=== PATIENT | male | born 1970 | race Caucasian/White ===

== ENCOUNTER 2018-11-24 15:44 | Emergency (ER) | payer SELFPAY ==
--- NOTE | 2018-11-24 16:01 | ER Document Report ---
ED Medical Screen (RME) - General Chief Complaint: Cold Symptoms Stated Complaint: CHEST/HEAD CONGESTION Time Seen by Provider: 11/24/18 16:00 - HPI Notes: 11/24/18 16:00 Patient is a 48-year-old male with no significant past medical history presents complaining nasal congestion/discharge, chills, body ache, dry cough that began yesterday. Patient states that other coworkers around him have been sick with a similar illness. No fever. I have treated and performed a rapid initial assessment of this patient. A comprehensive ED assessment and evaluation of the patient, analysis of test results and completion of medical decision making process will be conducted by additional ED providers. PHYSICAL EXAMINATION: GENERAL: Well-appearing, well-nourished and in no acute distress. A&Ox4. Answers questions appropriately. Lungs: CTAB - Related Data Allergies/Adverse Reactions: No Known Allergies Allergy (Verified 11/24/18 15:57) Physical Exam - Vital signs Vitals: Temp Pulse Resp BP Pulse Ox 98.2 F 96 18 141/77 H 99 11/24/18 15:48 11/24/18 15:48 11/24/18 15:48 11/24/18 15:48 11/24/18 15:48 Course - Vital Signs Vital signs: Temp Pulse Resp BP Pulse Ox 98.2 F 96 18 141/77 H 99 11/24/18 15:48 11/24/18 15:48 11/24/18 15:48 11/24/18 15:48 11/24/18 15:48
[2018-11-24] MEDS ORDERED: KETOROLAC TROMETHAMINE 60 MG/2 ML SDV IM ONE (16:17)
[2018-11-24] MEDS ORDERED: DEXAMETHASONE CONC 1 MG/ML SOLN PO ONE (16:17)
--- NOTE | 2018-11-24 17:08 | RADIOLOGY REPORT (SQ) ---
EXAM DESCRIPTION: CHEST 2 VIEWS COMPLETED DATE/TIME: 11/24/2018 5:00 pm REASON FOR STUDY: cough COMPARISON: None. EXAM PARAMETERS: NUMBER OF VIEWS: two views TECHNIQUE: Digital Frontal and Lateral radiographic views of the chest acquired. RADIATION DOSE: NA LIMITATIONS: none FINDINGS: LUNGS AND PLEURA: No opacities, masses or pneumothorax. No pleural effusion. MEDIASTINUM AND HILAR STRUCTURES: No masses or contour abnormalities. HEART AND VASCULAR STRUCTURES: Heart normal size. No evidence for failure. BONES: No acute findings. HARDWARE: None in the chest. OTHER: No other significant finding. IMPRESSION: NO ACUTE RADIOGRAPHIC FINDING IN THE CHEST. TECHNICAL DOCUMENTATION: JOB ID: [id number] [employer]- All Rights Reserved Reading location - IP/workstation name: [email or web address]
--- NOTE | 2018-11-24 17:25 | ER Document Report ---
ED Respiratory Problem - General Chief Complaint: Cold Symptoms Stated Complaint: CHEST/HEAD CONGESTION Time Seen by Provider: 11/24/18 16:00 - HPI Notes: 48-year-old male to the emergency department with complaints of cough, body aches, nasal congestion, sore throat that began yesterday. He states that he thinks he is been having a fever at night. He also states that when he lays down at night he feels like he has chest pain. He states that the cough is productive of a clearish yellow sputum. He states that several people at work have been sick as well. He has not had a flu shot this season. - Related Data Allergies/Adverse Reactions: No Known Allergies Allergy (Verified 11/24/18 15:57) Past Medical History - General Information source: Patient - Social History Smoking Status: Current Every Day Smoker - Decreased in use since starting new job Frequency of alcohol use: None Drug Abuse: None Family History: Reviewed & Not Pertinent Patient has suicidal ideation: No Patient has homicidal ideation: No Review of Systems - Review of Systems Constitutional: Chills, Fever, Malaise EENT: Nose congestion, Sinus pressure, Throat pain. denies: Ear pain Cardiovascular: Chest pain - Chest pain when laying down with congestion. denies: Palpitations, Heart racing Respiratory: See HPI, Cough, Sputum. denies: Short of breath, Wheezing Gastrointestinal: denies: Abdominal pain, Diarrhea, Nausea, Vomiting Genitourinary: No symptoms reported Musculoskeletal: Muscle pain - Body aches Skin: No symptoms reported Hematologic/Lymphatic: No symptoms reported Neurological/Psychological: No symptoms reported -: Yes All other systems reviewed and negative Physical Exam - Vital signs Vitals: Temp Pulse Resp BP Pulse Ox 98.2 F 96 18 141/77 H 99 11/24/18 15:48 11/24/18 15:48 11/24/18 15:48 11/24/18 15:48 11/24/18 15:48 Interpretation: Normal - General General appearance: Appears well, Alert - HEENT Head: Normocephalic, Atraumatic Eyes: Normal Pupils: PERRL Ears: Normal External canal: Normal Tympanic membrane: Normal Sinus: Normal. No: Swelling, Tenderness Nasal: Clear rhinorrhea Mouth/Lips: Normal. No: Angioedema Mucous membranes: Normal Pharynx: Erythema. No: Exudate, Peritonsillar abscess, Post nasal drainage, Retropharyngeal abscess, Tonsillar hypertrophy, Uvular edema, Potential airway comprom. Neck: Normal, Subcutaneous emphysema. No: Lymphadenopathy, Meningismus - Respiratory Respiratory status: No respiratory distress Chest status: Nontender. No: No pleuritic chest pain, Pain on movement, Pain with cough, Pain with deep breathing Breath sounds: Productive cough. No: Decreased air movement, Rales, Rhonchi, Stridor, Wheezing Chest palpation: Normal - Cardiovascular Rhythm: Regular Heart sounds: Normal auscultation Murmur: No - Abdominal Inspection: Normal Distension: No distension Bowel sounds: Normal Tenderness: Nontender Organomegaly: No organomegaly - Back Back: Normal, Nontender - Neurological Neuro grossly intact: Yes Cognition: Normal Orientation: AAOx4 [place] Coma Scale Eye Opening: Spontaneous Ramon Coma Scale Verbal: Oriented Ramon Coma Scale Motor: Obeys Commands Ramon Coma Scale Total: 15 Speech: Normal Motor strength normal: LUE, RUE, LLE, RLE Sensory: Normal - Psychological Associated symptoms: Normal affect, Normal mood - Skin Skin Temperature: Warm Skin Moisture: Dry Skin Color: Normal Course - Re-evaluation Re-evalutation: 11/24/18 17:25 Chest X-Ray 11/24/18 16:00 IMPRESSION: NO ACUTE RADIOGRAPHIC FINDING IN THE CHEST. Laboratory 11/24/18 17:19 Influenza A (Rapid) NEGATIVE Influenza B (Rapid) NEGATIVE - Vital Signs Vital signs: Temp Pulse Resp BP Pulse Ox 98.2 F 96 18 141/77 H 99 11/24/18 15:48 11/24/18 15:48 11/24/18 15:48 11/24/18 15:48 11/24/18 15:48 - Diagnostic Test Radiology reviewed: Image reviewed, Reports reviewed Discharge - Discharge Clinical Impression: Sore throat, Cough, Body aches, Flu-like symptoms URI (upper respiratory infection) Qualifiers: URI type: unspecified viral URI Qualified Code(s): J06.9 - Acute upper respiratory infection, unspecified Condition: Stable Disposition: HOME, SELF-CARE Instructions: Upper Respiratory Illness ([facility]) Additional Instructions: PUSH FLUIDS AND REST. RETURN IF WORSENING SYMPTOMS. FOLLOW UP WITH PRIMARY CARE. Prescriptions: Benzonatate [Tessalon Perle 100 mg Capsule] 100 mg PO Q8HP PRN #40 cap PRN Reason: Albuterol Sulfate [Albuterol Sulfate Hfa] 2 puff IH Q4H #1 hfa.aer.ad Phenol/Glycerin [Chloraseptic Max [place]] 2 spray MM PRN PRN #1 bottle PRN Reason: Ketorolac Tromethamine [Toradol 10 mg Tablet] 10 mg PO Q8H PRN #15 tablet PRN Reason: Cetirizine HCl [Zyrtec 10 mg Tablet] 1 tab PO DAILY #30 tablet Forms: Return to Work Referrals: [facility] [Provider Group] - Follow up in 1 week
[2018-11-24 17:48] LABS: A TYPE INFLUENZA AG NEGATIVE (NEGATIVE); B INFLUENZA AG NEGATIVE (NEGATIVE)
[2018-11-24 18:19] VITALS: BP 117/83
== END 2018-11-24 18:19 | disposition home or self-care (01) ==
LOC: ER 15:44
DX: J06.9 Acute upper respiratory infection, unspecified (principal); B97.89 Other viral agents as the cause of diseases classified elsewhere; J02.9 Acute pharyngitis, unspecified; R05 Cough; R09.81 Nasal congestion; R50.9 Fever, unspecified; J34.89 Other specified disorders of nose and nasal sinuses; R53.81 Other malaise; R07.9 Chest pain, unspecified; M79.10 Myalgia, unspecified site; F17.200 Nicotine dependence, unspecified, uncomplicated
CPT/HCPCS: 87804; 71046; J1885; J8540; 96372; 99283